=== PATIENT | female | born 1945 | race Caucasian/White ===

== ENCOUNTER 2022-03-13 13:30 | Inpatient (IN) | payer MEDICARE, OTHER ==
[~2022-03-13] VITALS: Ht 162.6 cm; Wt 68.0 kg
--- NOTE | 2022-03-13 13:30 | NUR ---
BIB [facility] 89 FROM HOME C/O N/V/D X30 MINS. PLACED ON BED, AAOX4, BREATHING EVEN AND UNLABORED, NAUSEATED AND VOMITING.
--- NOTE | 2022-03-13 14:22 | NUR ---
BLOOD DRAWN AND SENT TO LAB
[2022-03-13] MEDS ORDERED: ONDANSETRON HCL/PF 4 MG/2 ML VIAL ONE (14:25)
[2022-03-13 14:29] LABS: BASOPHILS % (AUTO) 0.4 % (0.0-2.0); EOSINOPHILS % (AUTO) 3.5 % (0.0-6.0); HEMATOCRIT 39 % (33-45); HEMOGLOBIN 12.7 g/dL (11.5-14.8); LYMPHOCYTES # (AUTO) 1.4 K/uL (0.8-4.8); LYMPHOCYTES % (AUTO) 17.9 % (20.0-44.0); MEAN CORPUSCULAR HGB CONC 33 g/dl (31.0-36.0); MEAN CORPUSCULAR VOLUME 90 fL (82-100); MONOCYTES # (AUTO) 0.4 K/uL (0.1-1.30); MONOCYTES % (AUTO) 5.3 % (2.0-12.0); NEUTROPHILS # (AUTO) 5.9 K/uL (1.8-8.9); NEUTROPHILS % (AUTO) 72.9 % (43.0-81.0); PLATELET COUNT (AUTO) 244 K/uL (150-450); RED BLOOD CELL COUNT(AUTO) 4.32 MIL/uL (4.0-5.2); WHITE BLOOD COUNT (AUTO) 8.1 K/uL (4.3-11.0)
[2022-03-13] MEDS ORDERED: ONDANSETRON HCL/PF 4 MG/2 ML VIAL IVP ONE (14:30)
[2022-03-13] MEDS ORDERED: IV NS 0.9% 1,000 ML BAG IV ONE (14:30)
[2022-03-13 14:46] LABS: ALANINE AMINOTRANSFERASE 23 U/L (12-78); ALBUMIN 3.7 g/dL (3.4-5.0); ALKALINE PHOSPHATASE 71 U/L (46-116); ASPARTATE AMINOTRANSFERASE 18 U/L (15-37); BILIRUBIN,DIRECT 0.1 mg/dL (0.0-0.2); BILIRUBIN,TOTAL 0.6 mg/dL (0.2-1.0); CALCIUM, SERUM 9.7 mg/dL (8.5-10.1); CARBON DIOXIDE 31 mmol/L (21-32); CHLORIDE 105 mmol/L (98-107); CREATININE 0.9 mg/dL (0.6-1.3); GLUCOSE 160 mg/dL (74-106); LIPASE 236 U/L (73-393); POTASSIUM 3.7 mmol/L (3.5-5.1); SODIUM SERUM 141 mmol/L (136-145); TOTAL PROTEIN, SERUM 7.4 g/dL (6.4-8.2); UREA NITROGEN, BLOOD 29 mg/dL (7-18)
--- NOTE | 2022-03-13 14:55 | NUR ---
EMMETT-SON [phone].
[2022-03-13] MEDS ORDERED: MECLIZINE HCL 12.5 MG TABLET PO ONE (15:30)
[2022-03-13] MEDS ORDERED: MECLIZINE HCL 25 MG TABLET ONE (15:54)
--- NOTE | 2022-03-13 16:06 | NUR ---
DAUGHTER AISLINN, LEFT CONTACT # [phone]
[2022-03-13] MEDS ORDERED: LIFI1DRO4 EACHEYE (16:10)
[2022-03-13] MEDS ORDERED: OMEP40CA21 PO (16:10)
[2022-03-13] MEDS ORDERED: SUCR1TAB PO (16:10)
[2022-03-13] MEDS ORDERED: ROSU20TA32 PO (16:10)
[2022-03-13] MEDS ORDERED: PROP160C2 PO (16:10)
[2022-03-13] MEDS ORDERED: SUMA100T16 PO (16:10)
[2022-03-13] MEDS ORDERED: GEMF600T90 PO (16:10)
[2022-03-13] MEDS ORDERED: LINA5TAB PO (16:10)
[2022-03-13] MEDS ORDERED: VALS1TAB8 PO (16:10)
[2022-03-13] MEDS ORDERED: METF-440 PO (16:10)
[2022-03-13] MEDS ORDERED: Z GUARD REMEDY 4 OZ OINT TP PRN (16:30)
[2022-03-13] MEDS ORDERED: ONDANSETRON HCL/PF 4 MG/2 ML VIAL IVP PRN (16:30)
[2022-03-13] MEDS ORDERED: DEXTROSE 50%-WATER 50 ML DISP.SYRIN IV PRN (16:30)
[2022-03-13] MEDS ORDERED: TEMAZEPAM 15 MG CAPSULE PO PRN (16:30)
[2022-03-13] MEDS ORDERED: MAG HYDROX/AL HYDROX/SIMETH 30 ML UDC PO PRN (16:30)
[2022-03-13] MEDS ORDERED: HYDROCODONE/APAP 5/325MG TABLET PO PRN (16:30)
[2022-03-13] MEDS ORDERED: LORAZEPAM INJ 2 MG/ML VIAL IV PRN (16:30)
[2022-03-13] MEDS ORDERED: LIFITEGRAST OP SCH (16:30)
[2022-03-13] MEDS ORDERED: HOME MED MISCELLANEOUS XX SCH (16:30)
[2022-03-13] MEDS ORDERED: MORPHINE SULFATE INJ 2 MG/ML DISP.SYRIN IV PRN (16:30)
--- NOTE | 2022-03-13 17:08 | NUR ---
SWAB FOR COVID19 SENT TO LAB
--- NOTE | 2022-03-13 17:26 | NUR ---
PATIENT TAKEN TO CT VIA LATAS[facility]
--- NOTE | 2022-03-13 18:41 | NUR ---
BED GIVEN 314-2
--- NOTE | 2022-03-13 19:36 | NUR ---
REPORT GIVEN TO JENNIFER KEYES ROOM 314-2 FOR KIRA.
[2022-03-13 20:00] VITALS: BP 114/76
[2022-03-13] MEDS: BLOOD SUGAR DIAGNOSTIC 1 EACH STRIP IN SCH ×2 (20:00→21:14)
[2022-03-13] MEDS: SUCRALFATE 1 G TABLET PO SCH ×2 (20:00→21:02)
--- NOTE | 2022-03-13 20:00 | NUR ---
MS NURSING ATTENDANT NOTE PT TRANSPORTED VIA GURNEY TO UNIT AT THIS TIME. PT ADMITTEDTO MS UNIT FROM ER UNDER SHEET METAL OPERATOR OMSAN FOR ADMITTING DX INTRACTABLE VERTIGO. A/O X3 AND ABLE TO MAKE NEEDS KNOWN. PT STABLE ON ROOM AIR. NO SOB OR S/S OF RESPIRATORY DISTRESS. BREATHING EVEN AND UNLABORED. IV ACCESS LFA 20 GAUGE, INTACT AND PATENT. SKIN IS INTACT. PT ORIENTED TO UNIT, STAFF, AND ROOM. PT BELONGINGS ACCOUNTED FOR AND BELONGINGS LIST SIGNED. PT CAME WITH SOILED PANTS AND SOCKS AND STATED SHE WANTED THEM THROWN IN THE GARBAGE. SAFETY PRECAUTIONS IN PLACE. BED IN LOWEST LOCKED POSITION, HOB ELEVATED, SIDE RAILS UP X2, AND CALL LIGHT AND TABLE WITHIN REACH. ALL NEEDS MET AT THIS TIME.
[2022-03-13] MEDS: MECLIZINE HCL 25 MG TABLET PO PRN (21:02)
[2022-03-13] MEDS: INSULIN REGULAR, HUMAN 100 UNIT/ML 3 ML VIAL SQ PRN (21:15)
--- NOTE | 2022-03-13 22:55 | NUR ---
RN NOTE PT REQUESTED SLEEPING PILL. ADMINISTERED RESTORIL 15 MG FOR INSOMNIA. MADE COMFORTABLE IN BED. ALL NEEDS MET AT THIS TIME.
[2022-03-14] MEDS: IV NS 0.9% 1,000 ML IV PRN ×2 (05:03→17:51)
--- NOTE | 2022-03-14 05:48 | NUR ---
RN NOTE AISLINN DAUGHTER PHONE NUMBER [phone]
[2022-03-14] MEDS: MECLIZINE HCL 25 MG TABLET PO PRN ×2 (06:07→16:42)
--- NOTE | 2022-03-14 06:07 | NUR ---
RN NOTE PT COMPLAINING OF DIZZINESS. ADMINISTERED MECLIZINE FOR DIZZINESS ORDERED. MADE COMFORTABLE IN BED. ALL NEEDS MET AT THIS TIME.
[2022-03-14 06:29] LABS: BASOPHILS % (AUTO) 0.3 % (0.0-2.0); EOSINOPHILS % (AUTO) 0.6 % (0.0-6.0); HEMATOCRIT 35 % (33-45); HEMOGLOBIN 11.8 g/dL (11.5-14.8); LYMPHOCYTES # (AUTO) 1.9 K/uL (0.8-4.8); LYMPHOCYTES % (AUTO) 20.8 % (20.0-44.0); MEAN CORPUSCULAR HGB CONC 34 g/dl (31.0-36.0); MEAN CORPUSCULAR VOLUME 89 fL (82-100); MONOCYTES # (AUTO) 0.6 K/uL (0.1-1.30); MONOCYTES % (AUTO) 6.2 % (2.0-12.0); NEUTROPHILS # (AUTO) 6.6 K/uL (1.8-8.9); NEUTROPHILS % (AUTO) 72.1 % (43.0-81.0); PLATELET COUNT (AUTO) 222 K/uL (150-450); RED BLOOD CELL COUNT(AUTO) 3.94 MIL/uL (4.0-5.2); WHITE BLOOD COUNT (AUTO) 9.1 K/uL (4.3-11.0)
[2022-03-14] MEDS: BLOOD SUGAR DIAGNOSTIC 1 EACH STRIP IN SCH ×4 (06:40→23:14)
--- NOTE | 2022-03-14 06:56 | NUR ---
MS RN CLOSING NOTE PT AWAKE IN BED. A/O X3 AND ABLE TO MAKE NEEDS KNOWN. PT STABLE ON ROOM AIR. NO SOB OR S/S OF RESPIRATORY DISTRESS. BREATHING EVEN AND UNLABORED. IV ACCESS LFA 20 GAUGE, INTACT AND PATENT, RUNNING NS 2 75 ML/HR. ALL DUE MEDS GIVEN ORDERED. SAFETY PRECAUTIONS IN PLACE AT ALL TIMES. BED IN LOWEST LOCKED POSITION, HOB ELEVATED, SIDE RAILS UP X2, AND CALL LIGHT AND TABLE WITHIN REACH. ALL NEEDS MET AT THIS TIME AND WILL ENDORSE TO ONCOMING NURSE FOR KIRA.
[2022-03-14 07:16] LABS: CALCIUM, SERUM 8.9 mg/dL (8.5-10.1); CARBON DIOXIDE 27 mmol/L (21-32); CHLORIDE 106 mmol/L (98-107); CREATININE 0.9 mg/dL (0.6-1.3); GLUCOSE 94 mg/dL (74-106); MAGNESIUM 1.9 mg/dL (1.8-2.4); PHOSPHORUS 4.3 mg/dL (2.5-4.9); POTASSIUM 3.3 mmol/L (3.5-5.1); SODIUM SERUM 142 mmol/L (136-145); UREA NITROGEN, BLOOD 25 mg/dL (7-18)
[2022-03-14 07:29] LABS: THYROID STIMULATING HORMONE 0.618 uIU/mL (0.358-3.74)
--- NOTE | 2022-03-14 07:58 | NUR ---
RN OPENING NOTE PATIENT AWAKE IN BED RESTING. A/O X 3. NO PAIN NOTED AT THIS TIME. ON ROOM AIR, NO DISTRESS OR SHORTNESS OF BREATH NOTED. IV ACCESS LFA #20G, INTACT, PATENT AND FLUSHING WELL. FALL AND SAFETY MEASURES IN PLACE, BED ALARM ON, BED IN LOW AND LOCK POSITION, CALL LIGHT AND TABLE WITHIN EASY REACH, SIDE RAILS UP X2. WILL CONTINUE TO MONITOR.
[2022-03-14 08:00] VITALS: BP 106/47
[2022-03-14] MEDS: SUCRALFATE 1 G TABLET PO SCH ×4 (09:07→23:12)
[2022-03-14] MEDS: PANTOPRAZOLE 40 MG TABLET.DR PO SCH (09:07)
[2022-03-14] MEDS: LOSARTAN POTASSIUM 50 MG TABLET PO SCH (09:07)
[2022-03-14] MEDS: HYDROCHLOROTHIAZIDE 25 MG TABLET PO SCH (09:09)
[2022-03-14] MEDS: GEMFIBROZIL 600 MG TABLET PO SCH (09:09)
[2022-03-14] MEDS: PROPRANOLOL 160 MG PO SCH (09:12)
[2022-03-14] MEDS ORDERED: POTASSIUM CHLORIDE 20 MEQ TAB.PRT.SR PO SCH (11:00)
[2022-03-14] MEDS: INSULIN REGULAR, HUMAN 100 UNIT/ML 3 ML VIAL SQ PRN ×2 (11:41→17:38)
[2022-03-14 16:00] VITALS: BP 117/61
--- NOTE | 2022-03-14 18:55 | NUR ---
RN CLOSING NOTE PATIENT AWAKE IN BED RESTING. A/O X 3. NO PAIN NOTED AT THIS TIME. ON ROOM AIR, NO DISTRESS OR SHORTNESS OF BREATH NOTED. IV ACCESS LFA #20G, INTACT, PATENT AND FLUSHING WELL. FALL AND SAFETY MEASURES IN PLACE, BED ALARM ON, BED IN LOW AND LOCK POSITION, CALL LIGHT AND TABLE WITHIN EASY REACH, SIDE RAILS UP X2. WILL ENDORSE TO SECTION HOUSEKEEPER.
--- NOTE | 2022-03-14 20:12 | NUR ---
MS/TELE/RN DURING INITIAL SHIFT ROUND, PATIENT WAS IN BED AWAKE, ALERT, ORIENTED, VERBALISED DIZZINESS WAS BETTER, NO SIGNS OF DISTRESS NOTED, CALL LIGHT WITHIN REACH, ENCOURAGED TO CALL BY CALL LIGHT FOR ANY ASSISTANCE FOR SAFETY. NEEDS ATTENDED, WILL MONITOR.
[2022-03-14 20:47] VITALS: BP 130/73
[2022-03-14] MEDS ORDERED: ATORVASTATIN 40 MG TABLET PO SCH (22:00)
--- NOTE | 2022-03-15 02:38 | NUR ---
MS/TELE/RN PATIENT IS SLEEPING, NO SIGNS OF DISTRESS NOTED, CALL LIGHT IN REACH, WILL CONTINUE TO MONITOR.
[2022-03-15] MEDS: MECLIZINE HCL 25 MG TABLET PO PRN ×2 (05:59→16:53)
[2022-03-15] MEDS: IV NS 0.9% 1,000 ML IV PRN (06:03)
--- NOTE | 2022-03-15 06:15 | NUR ---
MS/TELE/RN PATIENT IS AWAKE AT THIS TIME, MECLIZINE WAS GIVEN ORDERED FOR C/O DIZZINESS. ALL NEEDS ATTENDED AT THIS TIME, WILL CONTINUE TO MONITOR.
[2022-03-15] MEDS: INSULIN REGULAR, HUMAN 100 UNIT/ML 3 ML VIAL SQ PRN (06:32)
[2022-03-15] MEDS: BLOOD SUGAR DIAGNOSTIC 1 EACH STRIP IN SCH ×3 (06:41→16:53)
[2022-03-15 08:00] VITALS: BP 143/69
[2022-03-15 08:05] LABS: CALCIUM, SERUM 8.7 mg/dL (8.5-10.1); CREATININE 0.9 mg/dL (0.6-1.3); POTASSIUM 3.6 mmol/L (3.5-5.1)
[2022-03-15] MEDS: HYDROCHLOROTHIAZIDE 25 MG TABLET PO SCH (08:28)
[2022-03-15] MEDS: PROPRANOLOL 160 MG PO SCH (08:28)
[2022-03-15] MEDS: PANTOPRAZOLE 40 MG TABLET.DR PO SCH (08:29)
[2022-03-15] MEDS: SUCRALFATE 1 G TABLET PO SCH ×4 (08:29→20:21)
[2022-03-15] MEDS: LOSARTAN POTASSIUM 50 MG TABLET PO SCH (08:29)
[2022-03-15] MEDS: GEMFIBROZIL 600 MG TABLET PO SCH (08:29)
[2022-03-15 16:05] VITALS: BP 129/70
[2022-03-15] MEDS ORDERED: MECL-159 PO (17:27)
[2022-03-15] MEDS ORDERED: ONDA4TAB11 PO (17:29)
--- NOTE | 2022-03-15 19:15 | NUR ---
RN CLOSING NOTE PATIENT AWAKE IN BED RESTING. A/O X 3. NO PAIN NOTED AT THIS TIME. ON ROOM AIR, NO DISTRESS OR SHORTNESS OF BREATH NOTED. IV ACCESS LFA #20G, INTACT, PATENT AND FLUSHING WELL. FALL AND SAFETY MEASURES IN PLACE, BED ALARM ON, BED IN LOW AND LOCK POSITION, CALL LIGHT AND TABLE WITHIN EASY REACH, SIDE RAILS UP X2. PATIENT IS WAITING FOR TRANSPORTATION TO BE D/C PATIENT STILL EXPERIENCING DIZZINESS AND VOMITED ONCE, CHARGE NURSE AWARE, DOCTOR WAS INFORMED, WAITING FOR RESPONSE. WILL ENDORSE TO CIGAR PACKING EXAMINER NURSE.
--- NOTE | 2022-03-15 19:15 | NUR ---
RN MS OPENING NOTE RECEIVED PATIENT IN BED RESTING AWAKE, ALERT AND ORIENTED X3. NO S/SX OF ACUTE DISTRESS NOTED. DENIES PAIN/DISCOMFORT AT THIS TIME. ON ROOM AIR, TOLERATING WELL. IV ACCESS LFA #20G, INTACT, PATENT AND FLUSHING WELL. FALL AND SAFETY MEASURES IN PLACE, BED ALARM ON, BED IN LOW AND LOCK POSITION, CALL LIGHT AND TABLE WITHIN EASY REACH, SIDE RAILS UP X2. WILL CONTINUE TO MONITOR THROUGHOUT THE SHIFT.
[2022-03-15 20:00] VITALS: BP 149/74
--- NOTE | 2022-03-15 20:15 | NUR ---
BRAZER REPAIR AND SALVAGE NOTES PATIENT IS ALERT AND ORIENTED X3-4. NO S/SX OF ACUTE DISTRESS NOTED. NO SOB NOTED. NO EPISODES OF NAUSEA AND VOMITING AT THIS TIME. VITAL SIGNS ARE STABLE. DISCHARGE INSTRUCTIONS WAS GIVEN. PATIENT BELONGINGS SIGNED BY PATIENT. PATIENT IS GOING HOME. PATIENT WAS PICKED UP BY [facility]. IV SITE HAS BEEN REMOVED, ARM BAND WAS REMOVED WELL. CHARGE NURSE AWARE.
== END 2022-03-15 21:20 | disposition home or self-care (01) | DRG 149 ==
LOC: ER 13:34 → MED 19:44
PROVIDERS: ADMIT Nurse Practitioner Acute Care; ATTEND Nurse Practitioner Acute Care
DX: H81.10 Benign paroxysmal vertigo, unspecified ear (principal); K21.9 Gastro-esophageal reflux disease without esophagitis; E11.9 Type 2 diabetes mellitus without complications; I10 Essential (primary) hypertension; Z79.84 Long term (current) use of oral hypoglycemic drugs; E78.5 Hyperlipidemia, unspecified; F41.9 Anxiety disorder, unspecified; G43.909 Migraine, unspecified, not intractable, without status migrainosus; Z20.822 Contact with and (suspected) exposure to COVID-19
CPT/HCPCS: 36415; 70450-TC; 80048-TC; 80076-TC; 82962-TC; 83690-TC; 83735-TC; 84100-TC; 84443-TC; 84484-TC; 85025-TC; 87081-TC; 97116-TC; 97530-TC; C9803; G0378; J1815; J2405; J7030; J8597